=== PATIENT | male | born 1940 | race Caucasian/White ===

== ENCOUNTER → 2019-04-06 | Outpatient (CLI) | payer MEDICARE, BC ==
--- NOTE | 2019-04-07 03:56 | CT ---
EXAMINATION TYPE: CT abdomen pelvis wo con DATE OF EXAM: 04/06/2019 COMPARISON: None HISTORY: 79-year-old male right lower quadrant abdominal pain CT DLP: 869 mGycm. Automated exposure control for dose reduction was used. TECHNIQUE: Contiguous axial scanning of the abdomen and pelvis without IV contrast. Coronal and sagit charley reconstructions performed. FINDINGS: Right atrial and right ventricular pacer leads. Heart normal size without pericardial effusion. Moderate size hiatal hernia. Some strandy and hazy atelectasis in the lower lungs without pleural effusion. Noncontrast appearance of the liver, gallbladder, adrenal glands, and pancreas show no gross abnormal ity. Spleen with hilar splenule and a tiny 9 mm lower pole hypodensity which is nonspecific and likely genaro ign. Bilateral perinephric stranding without nephrolithiasis or hydronephrosis. No suspicious calcificatio n along the course of either ureter. Moderate atherosclerotic calcifications abdominal aorta without aneurysm. No dilated small bowel, free fluid, or free air. No mesenteric or retroperitoneal lymphadenopathy. Small fatty umbilical hernia. Normal appendix. There is moderate stool burden in the right hemicolon. Mild diverticular change in t he distal sigmoid. Additional moderate stool in the rectum which is distended up to 6.2 cm wide. Some presacral thickening and mild circumferential wall thickening at the distal rectum is noted. Patulous bilateral inguinal canals with a small fatty hernia suggested on the left and a more moderat e sized fatty hernia on the right, refer to coronal images 25, 27, 28. Mild diffuse circumferential bladder wall thickening but with more eccentric right posterolateral jase dder wall thickening up to 8 mm. Soft tissue protruding into the posterior bladder base likely from a hypertrophied median lobe of the prostate gland. Prostate gland is enlarged at 5.3 cm wide. There is a dependent bladder calculus measuring 1.2 cm on the left. Bones: Mild degenerative changes of the hips and SI joints. Hypertrophic facet arthropathy mid to low er lumbar spine with grade 1 retrolisthesis at L2-L5 levels. IMPRESSION: 1. Mild circumferential wall thickening of the distal rectum and some mild presacral thickening. Cor relate for proctitis. 2. Prostatomegaly (5.3 cm wide) with soft tissue protruding at the posterior bladder base. Correlate for symptoms of BPH. 3. Circumferential bladder wall thickening likely reflects chronic bladder wall hypertrophy. However , thickening is eccentrically greater towards the right measuring up to 8 mm. Correlate with urinalys is and urine cytology. Direct visualization if indicated. Incidental 1.2 cm dependent bladder calculu s. 4. Bilateral perinephric stranding likely senescent changes secondary to underlying chronic kidney d isease. No nephrolithiasis or hydronephrosis. 5. Moderate sized fatty right and small left inguinal hernias. 6. Moderate sized hiatal hernia.
== END | disposition home or self-care (01) ==
LOC: RADCTMAIN 14:17
PROVIDERS: ATTEND Family Medicine
DX: N40.0 Benign prostatic hyperplasia without lower urinary tract symptoms (principal); N21.0 Calculus in bladder; K40.20 Bilateral inguinal hernia, without obstruction or gangrene, not specified as recurrent; K44.9 Diaphragmatic hernia without obstruction or gangrene
CPT/HCPCS: 74176

== ENCOUNTER → 2021-09-03 | Outpatient (CLI) | payer MEDICARE, BC ==
[2021-09-03 14:44] LABS: Basophils # (A) 0.02 X 10*3/uL (0.00-0.10); Basophils % (A) 0.3 %; Eosinophils # (A) 0.04 X 10*3/uL (0.04-0.35); Eosinophils % (A) 0.7 %; HCT 28.3 % (39.6-50.0); HGB 9.3 g/dL (13.0-17.0); Immature Grans, Automated 0.3 %; Lymphocytes # (A) 0.83 X 10*3/uL (0.90-5.00); Lymphocytes % (A) 13.9 %; MCH 30.4 pg (27.0-32.0); MCHC 32.9 g/dL (32.0-37.0); MCV 92.5 fL (80.0-97.0); Mean Platelet Volume 9.7 fL (9.5-12.2); Monocytes # (A) 0.58 X 10*3/uL (0.20-1.00); Monocytes % (A) 9.7 %; NRBC Per 100 WBC 0 /100 WBCS (0.0-0.0); Neutrophils % (A) 75.1 %; Platelet Count 145 X 10*3/uL (140-440); RBC 3.06 X 10*6/uL (4.40-5.60); RDW 13.2 % (11.5-14.5); WBC 5.99 X 10*3/uL (4.50-10.00)
[2021-09-03 14:51] LABS: African American GFR (CKD) 49.2 (60.0-200.0); Albumin 3.4 g/dL (3.8-4.9); Albumin/Globulin Ratio 1.26 (1.60-3.17); BUN/Creat Ratio 15.67 Ratio (12.00-20.00); Blood Urea Nitrogen 23.5 mg/dL (9.0-27.0); Globulin 2.7 g/dL (1.6-3.3); Non-African American GFR(CKD) 42.4 (60.0-200.0); Potassium 3.6 mmol/L (3.5-5.5); Total Bilirubin 0.2 mg/dL (0.30-1.20); Total Protein 6.1 g/dL (6.2-8.2)
[2021-09-03 17:02] LABS: Appearance,Urine Turbid (Clear); Bilirubin,Urine Negative (Negative); Blood,Urine Negative (Negative); Color,Urine Yellow (Yellow); Ketones,Urine Trace mg/dL (Negative); Leukocyte Esterase,Urine Large (Negative); Nitrite,Urine Positive (Negative); PH, Urine 6.5 (5.0-8.0); Protein,Urine 30 (Negative); Specific Gravity,Urine 1.014 (1.001-1.030)
[2021-09-03 17:21] LABS: Bacteria,Urine 3+ /HPF (None Seen); Calcium Oxalate Crystals,Urine Present /LPF (None Seen); RBC,Urine 0-2 /HPF (0-2); WBC,Urine >100 /HPF (0-5)
== END | disposition home or self-care (01) ==
LOC: LABPAT 09:19
PROVIDERS: ATTEND Urology
DX: Z01.812 Encounter for preprocedural laboratory examination (principal); N21.9 Calculus of lower urinary tract, unspecified; R33.9 Retention of urine, unspecified
CPT/HCPCS: 80053; 81001; 85025; 87086

== ENCOUNTER 2021-09-10 07:11 | Day surgery (SDC) | payer MEDICARE, BC ==
[2021-09-09 09:41] VITALS: BMI 22.3
--- NOTE | 2021-09-09 17:58 | P.GSHP ---
History of Present Illness H&P Date: 09/09/21 81 yo male in urine retention who comes for a turp as he has failed voiding on [employer]. He also has two bladder stones whic will be removed at the same time.The patient underwent bowel surgery and went into retention after that. He was unable to void aftere that despite medication. He had a cysto showing a trilobed prostate and two stones. He comes for turp and cystolithotripsy. - Cardiovascular Cardiovascular: Reports chest pain, Reports irregular heart beat - Endocrine Comment: DM Past Medical History Past Medical History: Atrial Fibrillation, Cancer, Diabetes Mellitus, GERD/Reflux, Hyperlipidemia, Hypertension, Myocardial Infarction ([place]), Prostate Disorder Additional Past Medical History / Comment(s): enlarged prostate, hx skin cancer, barretts esophagus, hx diverticulitis., hospitalized in Jun 2021 for bowel obst ., pt having some dizziness after taking levaquin and will call Dr Sears. Last Myocardial Infarction Date:: 09/08/2010 History of Any Multi-Drug Resistant Organisms: None Reported Past Surgical History: Bowel Resection, Cardiac Valve Replacement, Coronary Bypass/CABG, Heart Catheterization, Heart Catheterization With Stent, Pacemaker Additional Past Surgical History / Comment(s): CABG with aortic valve replacement 09/12/2013, skin cancer removed from face,. [facility] ([facility]) Past Anesthesia/Blood Transfusion Reactions: No Reported Reaction Date of Last Stent Placement:: unknown Type of Cardiac Device: Permanent Pacemaker Device Placement Date:: 08/2013 Past Psychological History: No Psychological Hx Reported Smoking Status: Never smoker Past Alcohol Use History: Rare Past Drug Use History: None Reported - Past Family History Son(s) Family Medical History: Pulmonary Embolus Sister(s) Family Medical History: Cancer Medications and Allergies Home Medications Medication Instructions Recorded Confirmed Type Esomeprazole Magnesium [NexIUM] 20 mg PO DAILY 10/10/15 09/09/21 History Apixaban [Eliquis] 5 mg PO BID 09/09/21 09/09/21 History Cyanocobalamin (Vitamin B-12) 1,000 mcg PO DAILY 09/09/21 09/09/21 History [Vitamin B-12] Insulin Degludec [Tresiba] 24 units SQ HS 09/09/21 09/09/21 History Insulin Lispro [humaLOG Kwikpen] 10 - 12 unit SQ TID-W/MEALS 09/09/21 09/09/21 History L.acidoph,Paracasei, B.lactis 1 each PO DAILY 09/09/21 09/09/21 History [Probiotic] Levaquin 1 dose PO DAILY 09/09/21 History Metoprolol Tartrate 12.5 mg PO BID 09/09/21 09/09/21 History Multivit-Min/FA/Lycopen/Lutein 1 each PO DAILY 09/09/21 09/09/21 History [Centrum Silver Men Tablet] Pravastatin Sodium 80 mg PO HS 09/09/21 09/09/21 History Psyllium Husk (with Sugar) 1 dose PO DIRECTED 09/09/21 09/09/21 History [Metamucil Powder] Spironolactone-Hctz 25-25Mg 1 each PO DAILY 09/09/21 09/09/21 History [Aldactazide 25-25Mg] Allergies Allergy/AdvReac Type Severity Reaction Status Date / Time levofloxacin [From Levaquin] AdvReac Unknown dizziness- Verified 09/09/21 09:41 unsure new medication Surgical - Exam - General well developed, well nourished - Eyes PERRL - ENT no hearing loss - Neck trachea midline - Respiratory normal expansion, normal respiratory effort - Cardiovascular Rhythm: irregularly irregular - Abdomen Abdomen: soft, non tender - Genitourinary indwelling catheter. normal penis with no external lesions, testicles present - Integumentary no rash, no growths - Neurologic normal coordination, normal sensation - Musculoskeletal normal gait - Psychiatric oriented to time, oriented to person, oriented to place, speech is normal, memory intact Assessment and Plan Assessment: Impression: urine retention, bladder stones, cad, dm Plan: bipolar turp with cysto lithotripsy
[~2021-09-10 07:11] MED LIST: AMPICILLIN 1,000 MG in SODIUM CHLORIDE 0.9% 50 ML IVPB PRN; DEXAMETHASONE SOD PHOSPHATE 4 MG/ML 1 ML VIAL IV ONE; GENTAMICIN 100 MG in SODIUM CHLORIDE 0.9% 100 ML IVPB PRN; ONDANSETRON 4 MG/2 ML VIAL IVP ONE
[2021-09-10] MEDS ORDERED: LIDOCAINE 1% (10MG/ML) FOR IV START INTRADERMA PRN (07:47)
[2021-09-10] MEDS ORDERED: LACTATED RINGERS 1,000 ML IV SCH (07:47)
[2021-09-10] MEDS ORDERED: HYDROmorphone 0.5 MG/0.5 ML SYRINGE IVP PRN (07:47)
[2021-09-10 08:12] LABS: Glucose,Whole Blood 139 mg/dL (75-99)
[2021-09-10] MEDS ORDERED: GLYCOPYRROLATE 0.2 MG/ML 2 ML VIAL ONE (08:22)
[2021-09-10] MEDS ORDERED: PROPOFOL 10 MG/ML 20 ML VIAL IV ONE (08:22)
[2021-09-10] MEDS ORDERED: SUCCINYLCHOLINE CHLORIDE 100 MG/5 ML SYR IV ONE (08:22)
[2021-09-10] MEDS ORDERED: PHENYLEPHRINE-0.9% NACL SYG 1,000 MCG/10 ML SYRINGE ONE (08:22)
[2021-09-10] MEDS ORDERED: LIDOCAINE 1% INJ 10MG/ML (20 ML MDV) ONE (08:22)
[2021-09-10] MEDS ORDERED: fentaNYL (PF) 50 MCG/ML 2 ML AMP ONE (08:22)
[2021-09-10] MEDS ORDERED: NEOSTIGMINE 1 MG/ML 10 ML VIAL ONE (08:22)
[2021-09-10] MEDS ORDERED: ROCURONIUM 10 MG/ML (5 ML VIAL) IV ONE (08:22)
--- NOTE | 2021-09-10 09:53 | P.OP ---
Date of Procedure: 09/10/21 Preoperative Diagnosis: Urine retention secondary to BPH, bladder stones Postoperative Diagnosis: Same Procedure(s) Performed: Cystoscopy, cystolithotripsy (greater than 2.5 cm) bipolar TURP Anesthesia: BHAVANA Surgeon: Felipe Sears Estimated Blood Loss (ml): 50 Pathology: other (Stone and prostate) Condition: stable Disposition: PACU Indications for Procedure: The patient is 81. He is gone in urine retention. He is found to have 3 bladder stones totaling greater than 2.5 cm. He has a trilobar obstructing prostate with a prominent intravesical middle lobe. He has heavy trabeculation of the bladder. He has failed medical management to relieve his obstruction. He comes for cystoscopy lithotripsy and TURP Description of Procedure: Patient is brought to the operating suite. He is given a general endotracheal anesthesia. He's placed lithotomy position and sterile prep and drape. The Leone catheters been removed. Under direct vision the 17-Latvian sheath Foroblique lens is introduced in the urethra. The 3 stones are seen. With the 500 laser probe the stones are broken into small fragments up. The total burden of the stones is greater than 2.5 cm. After adequate fracturing the stones I flushed out the fragments and dust remaining. I introduced the 25-[place]vian sheath direct vision obturator and Foroblique lens into the bladder again. The prostates inspected to have trilobar obstruction. With the Flores resectoscope super sect bipolar loop I first resect the middle lobe. I then moved to 12:00 and resect the left lateral lobe from bladder neck to verumontanum. I then do the same on the right side. I then resect the red undant floor tissue. I irrigate the bladder out of any prostatic chips. Bleeding was controlled electrocautery. There is no significant remaining obstructing tissue. There is no chips remaining in the bladder. There is no active bleeding. I removed the resectoscope and cred the bladder with a good strong stream An 18-Latvian coud-tip catheter is introduced the bladder with clear urine return. The patient is awakened and returned recovery room good condition. He'll be discharged home upon recovery and follow in the office early next week for catheter removal.
[2021-09-10 09:55] VITALS: TEMP 96.9
[2021-09-10] MEDS ORDERED: LACTATED RINGERS 1,000 ML IV ONE (10:28)
[2021-09-10] MEDS ORDERED: LIDOCAINE-D5W PMX 2G/250ML 2,000 MG in DEXTROSE/WATER 1 250ML.BAG IV ONE (10:28)
[2021-09-10 11:53] VITALS: BP 128/64; PULSE 61; RESP 14
== END 2021-09-10 12:24 | disposition home or self-care (01) ==
LOC: OR 07:11
PROVIDERS: ATTEND Urology
DX: R33.9 Retention of urine, unspecified (principal); N40.0 Benign prostatic hyperplasia without lower urinary tract symptoms; N21.0 Calculus in bladder; I48.91 Unspecified atrial fibrillation; E11.9 Type 2 diabetes mellitus without complications; E78.5 Hyperlipidemia, unspecified; I25.2 Old myocardial infarction; K21.9 Gastro-esophageal reflux disease without esophagitis; I10 Essential (primary) hypertension; Z95.1 Presence of aortocoronary bypass graft
CPT/HCPCS: 52318; 88344; 88305; 82365; J1100; J2710; J2405; J2001; J3010; J1580; J0290; J2370; J0330; J2704